=== PATIENT | female | born 1975 | race Caucasian/White ===

== ENCOUNTER 2024-05-23 03:35 | Emergency (ER) | payer SELFPAY ==
[2024-05-23 03:45] VITALS: BP 120/76; PULSE 86; RESP 20; TEMP 36.6; O2SAT 98; BMI 24.3
[2024-05-23] MEDS: ondansetron 2 mg/ML SDV 2 mL 8 MG IVP (04:06)
[2024-05-23] MEDS: sodium chloride 0.9% 1,000 ML 999 ML IV (04:06)
--- NOTE | 2024-05-23 04:10 | ED_ITS ---
Documented by User: Rinku Eugene DO 05/23/24 04:11 HPI - Nausea/Vomiting/Diarrhea 2 General: Chief complaint: Nausea/Vomiting/Diarrhea Stated complaint: N,V,D Hot,and cold Time Seen by Provider: 05/23/24 03:38 History of Present Illness: Patient presents to the ER with nausea vomiting diarrhea and feeling hot and cold, she said this all started about 2:00 this morning. Patient denies any sick contacts or intake of bad food. Patient says she does not get this way very often, patient denies any abdominal surgeries other than a couple C- sections. Related Data Previous Rx's ?Medication ?Instructions ?Recorded ondansetron 8 mg disintegrating 8 mg PO Q6H #14 tabs 0 05/23/24 tablet Review of Systems 2 General: Reports: 10 or more systems reviewed and unremarkable except in HPI and below Physical Exam 2 Const: COMMON NORMALS: no acute distress, average body habitus, patient oriented x3, no limitations, healthy appearing, alert and well nourished HENMT: COMMON NORMALS: normocephalic, atraumatic, hearing grossly normal bilaterally, external ears normal, Normal external nose present, moist oral mucous membranes and oropharynx normal HEAD & SCALP: normocephalic and atraumatic NOSE: Normal external nose present EXTERNAL EAR: Yes external ears normal Neck/C-Spine: COMMON NORMALS: no JVD Chest: COMMONS NORMALS: normal inspection of the chest and normal palpation of entire chest wall Resp: COMMON NORMALS: normal respiratory effort, No retractions, No use of accessory muscles and clear to auscultation bilaterally AUSCULTATION: clear to auscultation bilaterally Cardio: COMMON NORMALS: no JVD, regular rate, regular rhythm, S1 normal heart sound present, S2 normal heart sound present, No gallops present (Cardio), No clicks present (Cardio), No murmurs present (Cardio) and No rub (Cardio) R ATE: regular rate RHYTHM: regular rhythm HEART SOUNDS: S1 normal heart sound present and S2 normal heart sound present GI: COMMON NORMALS: Normal to inspection, nondistended, normoactive bowel sounds present, Soft to palpation, non-tender, No hepatosplenomegaly present and no masses PALPATION: Yes Soft to palpation and Yes No hepatosplenomegaly present Neuro: COMMON NORMALS: patient oriented x3 SENSORIUM/ORIENTATION: Yes alert Course 2 Vital Signs: Vital signs: Vital Signs Temperature 98 F 05/23/24 03:45 Pulse Rate 86 05/23/24 03:45 Respiratory Rate 20 H 05/23/24 03:45 Blood Pressure 120/76 05/23/24 03:45 Pulse Oximetry 98 05/23/24 03:45 MDM - Nausea/Vomiting/Diarrhea Medical Records I reviewed the patient's medical records. Lab Data I reviewed the patient's lab results. 05/23/24 06:14 05/23/24 06:14 Laboratory Results WBC 16.44 10^3/uL (3.29-11.43) H 05/23/24 06:14 RBC 4.16 10^6/uL (3.85-5.65) 05/23/24 06:14 Hgb 12.90 g/dL (11.27-16.99) 05/23/24 06:14 Hct 39.8 % (36-47) 05/23/24 06:14 MCV 95.7 fl (85-98) 05/23/24 06:14 MCH 31.0 pg (27-33) 05/23/24 06:14 MCHC 32.4 g/dL (30-55) 05/23/24 06:14 RDW 12.9 % (12.1-15.1) 05/23/24 06:14 Plt Count 309 10^3/cmm (157-399) 05/23/24 06:14 MPV 9.2 fL (7.4-10.4) 05/23/24 06:14 Neut % (Auto) 89.3 % 05/23/24 06:14 Lymph % (Auto) 2.9 % 05/23/24 06:14 [place] % (Auto) 6.3 % 05/23/24 06:14 Eos % (Auto) 0.9 % 05/23/24 06:14 Baso % (Auto) 0.2 % 05/23/24 06:14 Neut # (Auto) 14.68 10^3/uL (1.8-7.7) H 05/23/24 06:14 Lymph # (Auto) 0.5 10^3/uL (0.8-4.8) L 05/23/24 06:14 [place] # (Auto) 1.0 10^3/uL (0.2-0.9) H 05/23/24 06:14 Eos # (Auto) 0.2 10^3/uL (0.0-0.8) 05/23/24 06:14 Baso # (Auto) 0.0 10^3/uL (0.0-0.1) 05/23/24 06:14 Nucleated RBC % (auto) 0 % 05/23/24 06:14 Nucleated RBCs # 0.0 /100WBC 05/23/24 06:14 Sodium 140 mmol/L (136-145) 05/23/24 06:14 Potassium 3.9 mmol/L (3.5-5.1) 05/23/24 06:14 Chloride 106 mmol/L (98-107) 05/23/24 06:14 Carbon Dioxide 23 mmol/L (22-29) 05/23/24 06:14 Anion Gap 14.9 (5-19) 05/23/24 06:14 BUN 20 mg/dL (6-20) 05/23/24 06:14 Creatinine 0.7 mg/dL (0.5-0.9) 05/23/24 06:14 GFR Calculation 89.3 mL/min (90-130) L 05/23/24 06:14 Glucose 131 mg/dL (65-115) H 05/23/24 06:14 Calculated Osmolality 294 mOsm/kg (285-295) 05/23/24 06:14 Calcium 8.9 mg/dL (8.5-10.5) 05/23/24 06:14 Magnesium 1.6 mg/dL (1.7-2.3) L 05/23/24 06:14 Total Bilirubin 0.4 mg/dL (0.15-1.2) 05/23/24 06:14 AST 31 U/L (0-32) 05/23/24 06:14 ALT 63 U/L (0-33) H 05/23/24 06:14 Alkaline Phosphatase 79 U/L (35-105) 05/23/24 06:14 Total Protein 7.0 g/dL (6.6-8.7) 05/23/24 06:14 Albumin 4.2 g/dL (3.5-5.2) 05/23/24 06:14 Globulin 2.8 g/dL (1.3-4.6) 05/23/24 06:14 Lipase 27 U/L (13-60) 05/23/24 06:14 All radiology interpretation(s) finalized by discharge Discharge Plan Discharge Patient Disposition: Home Clinical Impression: Gastroenteritis Condition: Stable Prescriptions: New ondansetron 8 mg tablet,disintegrating 8 mg PO Q6H Qty: 14 0RF Rx Instructions: Take 1/2-1 tab every 6 hours as needed for nausea and vomiting Discharge Orders: Discharge ED (Routine); Ordered 05/23/24 Ordered By: Rain Khan Discharge Diet: Advance as tolerated Discharge Activity: Increase activity as tolerated Patient Instructions: Gastroenteritis (ED), Opioid Safety, Pain Management Activity Restrictions/Additional Instructions: Thank you for choosing [facility] for your healthcare needs today. Please realize this is an emergency room and that we are providing you with a medical screening exam and this may not be complete and all inclusive of all the testing and or work up that you may need to determine your ailment or severity of your illness. You have been screened and evaluated and felt safe for discharge. Health conditions do change or evolve sometimes and as such it is important that you follow up with your Primary Doctor to be re checked, 3-5 days is a general good time frame for follow up. 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[employer] Documented by User: Rain Khan MD 05/23/24 07:13 HPI - Nausea/Vomiting/Diarrhea 2 General: Chief complaint: Nausea/Vomiting/Diarrhea Stated complaint: N,V,D Hot,and cold Time Seen by Provider: 05/23/24 03:38 Related Data Previous Rx's ?Medication ?Instructions ?Recorded ondansetron 8 mg disintegrating 8 mg PO Q6H #14 tabs 0 05/23/24 tablet Course 2 Vital Signs: Vital signs: Vital Signs Temperature 98 F 05/23/24 03:45 Pulse Rate 86 05/23/24 03:45 Respiratory Rate 20 H 05/23/24 03:45 Blood Pressure 120/76 05/23/24 03:45 Pulse Oximetry 98 05/23/24 03:45 MDM - Nausea/Vomiting/Diarrhea Medical Decision Making Assessment and plan: Gastroenteritis ?[facility] emergency room. Tolerating fluids. - Discharged home - Discussed plan with patient. Answered any questions. - Evaluation and treatment of this problem were appropriate in the emergency setting. Lab Data 05/23/24 06:14 05/23/24 06:14 Laboratory Results WBC 16.44 10^3/uL (3.29-11.43) H 05/23/24 06:14 RBC 4.16 10^6/uL (3.85-5.65) 05/23/24 06:14 Hgb 12.90 g/dL (11.27-16.99) 05/23/24 06:14 Hct 39.8 % (36-47) 05/23/24 06:14 MCV 95.7 fl (85-98) 05/23/24 06:14 MCH 31.0 pg (27-33) 05/23/24 06:14 MCHC 32.4 g/dL (30-55) 05/23/24 06:14 RDW 12.9 % (12.1-15.1) 05/23/24 06:14 Plt Count 309 10^3/cmm (157-399) 05/23/24 06:14 MPV 9.2 fL (7.4-10.4) 05/23/24 06:14 Neut % (Auto) 89.3 % 05/23/24 06:14 Lymph % (Auto) 2.9 % 05/23/24 06:14 [place] % (Auto) 6.3 % 05/23/24 06:14 Eos % (Auto) 0.9 % 05/23/24 06:14 Baso % (Auto) 0.2 % 05/23/24 06:14 Neut # (Auto) 14.68 10^3/uL (1.8-7.7) H 05/23/24 06:14 Lymph # (Auto) 0.5 10^3/uL (0.8-4.8) L 05/23/24 06:14 [place] # (Auto) 1.0 10^3/uL (0.2-0.9) H 05/23/24 06:14 Eos # (Auto) 0.2 10^3/uL (0.0-0.8) 05/23/24 06:14 Baso # (Auto) 0.0 10^3/uL (0.0-0.1) 05/23/24 06:14 Nucleated RBC % (auto) 0 % 05/23/24 06:14 Nucleated RBCs # 0.0 /100WBC 05/23/24 06:14 Sodium 140 mmol/L (136-145) 05/23/24 06:14 Potassium 3.9 mmol/L (3.5-5.1) 05/23/24 06:14 Chloride 106 mmol/L (98-107) 05/23/24 06:14 Carbon Dioxide 23 mmol/L (22-29) 05/23/24 06:14 Anion Gap 14.9 (5-19) 05/23/24 06:14 BUN 20 mg/dL (6-20) 05/23/24 06:14 Creatinine 0.7 mg/dL (0.5-0.9) 05/23/24 06:14 GFR Calculation 89.3 mL/min (90-130) L 05/23/24 06:14 Glucose 131 mg/dL (65-115) H 05/23/24 06:14 Calculated Osmolality 294 mOsm/kg (285-295) 05/23/24 06:14 Calcium 8.9 mg/dL (8.5-10.5) 05/23/24 06:14 Magnesium 1.6 mg/dL (1.7-2.3) L 05/23/24 06:14 Total Bilirubin 0.4 mg/dL (0.15-1.2) 05/23/24 06:14 AST 31 U/L (0-32) 05/23/24 06:14 ALT 63 U/L (0-33) H 05/23/24 06:14 Alkaline Phosphatase 79 U/L (35-105) 05/23/24 06:14 Total Protein 7.0 g/dL (6.6-8.7) 05/23/24 06:14 Albumin 4.2 g/dL (3.5-5.2) 05/23/24 06:14 Globulin 2.8 g/dL (1.3-4.6) 05/23/24 06:14 Lipase 27 U/L (13-60) 05/23/24 06:14 Discharge Plan Discharge Patient Disposition: Home Clinical Impression: Gastroenteritis Condition: Stable Prescriptions: New ondansetron 8 mg tablet,disintegrating 8 mg PO Q6H Qty: 14 0RF Rx Instructions: Take 1/2-1 tab every 6 hours as needed for nausea and vomiting Discharge Orders: Discharge ED (Routine); Ordered 05/23/24 Ordered By: Rain Khan Discharge Diet: Advance as tolerated Discharge Activity: Increase activity as tolerated Patient Instructions: Gastroenteritis (ED), Opioid Safety, Pain Management Activity Restrictions/Additional Instructions: Thank you for choosing [facility] for your healthcare needs today. Please realize this is an emergency room and that we are providing you with a medical screening exam and this may not be complete and all inclusive of all the testing and or work up that you may need to determine your ailment or severity of your illness. You have been screened and evaluated and felt safe for discharge. Health conditions do change or evolve sometimes and as such it is important that you follow up with your Primary Doctor to be re checked, 3-5 days is a general good time frame for follow up. 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
[2024-05-23 06:20] LABS: Basophils % 0.2 %; Eosinophils # 0.2 10^3/uL (0.0-0.8); Eosinophils % 0.9 %; Hematocrit 39.8 % (36-47); Lymphocytes # 0.5 10^3/uL (0.8-4.8); Lymphocytes % 2.9 %; Mean Corpuscular HGB Conc 32.4 g/dL (30-55); Mean Corpuscular Volume 95.7 fl (85-98); Mean Platelet Volume 9.2 fL (7.4-10.4); Monocytes % 6.3 %; Neutrophils # 14.68 10^3/uL (1.8-7.7); Neutrophils % 89.3 %; Nucleated Red Blood Cells % 0 %; Platelet Count 309 10^3/cmm (157-399); Red Blood Count 4.16 10^6/uL (3.85-5.65); Red Cell Distribution Width 12.9 % (12.1-15.1); White Blood Count 16.44 10^3/uL (3.29-11.43)
[2024-05-23 06:36] LABS: Alanine Aminotransferase 63 U/L (0-33); Albumin Level 4.2 g/dL (3.5-5.2); Alkaline Phosphatase 79 U/L (35-105); Anion Gap 14.9 (5-19); Aspartate Amino Transferase 31 U/L (0-32); Blood Urea Nitrogen 20 mg/dL (6-20); Calcium 8.9 mg/dL (8.5-10.5); Carbon Dioxide 23 mmol/L (22-29); Chloride 106 mmol/L (98-107); Globulin 2.8 g/dL (1.3-4.6); Glomerular Filtration Rate 89.3 mL/min (90-130); Glucose 131 mg/dL (65-115); Lipase 27 U/L (13-60); Magnesium 1.6 mg/dL (1.7-2.3); Osmolality Calculated 294 mOsm/kg (285-295); Potassium 3.9 mmol/L (3.5-5.1); Sodium 140 mmol/L (136-145); Total Bilirubin 0.4 mg/dL (0.15-1.2)
[2024-05-23 07:05] VITALS: BP 104/64; PULSE 78; O2SAT 95
[2024-05-23 07:28] VITALS: BP 104/64; PULSE 87; O2SAT 95
== END 2024-05-23 07:28 | disposition home or self-care (01) ==
PROVIDERS: Emergency Medicine; Emergency Provider Emergency Medicine
DX: K52.9 Noninfective gastroenteritis and colitis, unspecified (principal)
CPT/HCPCS: 36415; 80053; 83690; 83735; 85025; 96361; 96374; 99284; J2405; J7030